=== PATIENT | male | born 1955 | race American Indian/Alaskan Native ===

== ENCOUNTER → 2017-08-16 | Outpatient (CLI) | payer MEDICAID | LOC: FIMAGING 08:48 | PROVIDERS: ATTEND Physician Assistant | DX: M19.042 Primary osteoarthritis, left hand (principal); M19.041 Primary osteoarthritis, right hand; M19.032 Primary osteoarthritis, left wrist; M19.031 Primary osteoarthritis, right wrist ==

== ENCOUNTER 2018-02-03 10:11 | Emergency (ER) | payer MEDICAID ==
[2018-02-03 10:17] VITALS: BP 162/89
--- NOTE | 2018-02-03 10:31 | EDPHY ---
H & P Stated Complaint: stung by wasp on r index finger Source: Patient Exam Limitations: No limitations - Personal History Current Tetanus Diphtheria and Acellular Pertussis (TDAP): No - Medical/Surgical History Hx Asthma: No Hx Chronic Respiratory Disease: No Hx Diabetes: No Hx Cardiac Disease: No Hx Renal Disease: No Hx Cirrhosis: No Hx Alcoholism: No Hx HIV/AIDS: No Hx Splenectomy or Spleen Trauma: No Other PMH: denies - Social History Smoking Status: Never smoked Time Seen by Provider: 02/03/18 10:23 HPI/ROS: HPI: This is a 62-year-old male who presents with Chief Complaint: stung by wasp on r index finger Location: Right index finger Quality: Wasp sting Duration: Prior to arrival Signs and Symptoms: No chest pain, no shortness of breath, no difficulty swallowing, no wheezing, no rash Timing: Acute Severity: Mild Context: Patient is right-hand dominant, presents with wasp sting to right index finger prior to arrival. He denies any allergy to a wasp or bees. He is concerned as there is mild swelling to his right index finger but he denies any radiation, weakness, decreased range of motion. He reports that he wash the area and even port hydrogen peroxide on his finger. Modifying Factors: None Comment: ROS: see HPI Constitutional: No fever, no chills, no weight loss Eyes: No blurred vision Respiratory: No shortness of breath, no cough Cardiovascular: No chest pain Gastrointestinal: No nausea, no vomiting, no diarrhea Genitourinary: No dysuria Extremities: No myalgias Neurologic: No weakness, no numbness Skin: No rashes Hematologic: No bruising, no bleeding MEDICAL/SURGICAL/SOCIAL HISTORY: Medical history: Generally healthy. Does not take any regular medications. Surgical history: Denies Social history: Never smoked. Family history noncontributory. CONSTITUTIONAL: Extremely well-appearing elderly white male, awake and alert, no obvious distress HEENT: Atraumatic and normocephalic, PERRL, EOMI. Nares patent; no rhinorrhea; no nasal mucosal edema. Tympanic membranes clear. Oropharynx clear, no exudate and moist pink mucosa. Airway patent. No lymphadenopathy. No meningismus. Cardiovascular: Normal S1/S2, regular rate, regular rhythm, without murmur rub or gallop. PULMONARY/CHEST: Symmetrical and nontender. Clear to auscultation bilaterally. Good air movement. No accessory muscle usage. ABDOMEN: Soft, nondistended, nontender, no rebound, no guarding, no peritoneal signs, no masses or organomegaly. No CVAT. EXTREMITIES: 2/2 pulses, strength 5/5, right index finger shows a small pinpoint puncture wound consistent with a sting; no foreign bodies appreciated. DI P, PIP, MCP joints show good range of motion of flexion extension. no deformities, no clubbing, no cyanosis or edema. NEUROLOGICAL: no focal neuro deficits. GCS 15. SKIN: Warm and dry, no erythema. no rash. Good capillary refill. (Chloe Lange) Constitutional: Initial Vital Signs Temperature (C) 36.8 C 02/03/18 10:14 Heart Rate 83 02/03/18 10:14 Respiratory Rate 18 02/03/18 10:14 Blood Pressure 162/89 H 02/03/18 10:14 O2 Sat (%) 99 02/03/18 10:14 O2 Delivery Mode Room Air Allergies/Adverse Reactions: procaine [From Novocain] Allergy (Verified 02/03/18 10:13) Home Medications: Medication Instructions Recorded Cephalexin [Keflex (*)] 500 mg PO TID #21 cap 02/03/18 Medical Decision Making ED Course/Re-evaluation: Vital signs stable and reviewed upon arrival. Localized reaction. No signs of anaphylaxis, respiratory distress, airway compromise. Area cleaned with Betadine and normal saline and ice pack applied. Patient has politely declined any steroids or EpiPen as he is [employer] and " does not believe in any pharmaceutical medications." Area cleaned bacitracin applied as well as clean sterile dressing. Given Benadryl 50 mg. Advised supportive care. 1105: Notified by nurse that patient is adamant that he needs antibiotic to prevent cellulitis. Prescription for Keflex given. No signs of neurovascular compromise/tenting of skin/compartment syndrome/ extremities and joints examined above and below area of concern and are neurovascularly intact. This patient was seen under the supervision of my secondary supervising physician. I evaluated care for this patient independently. Discussed this patient with Dr. Newton who did not see the patient. (Chloe Lange) Portions of this note were transcribed by the medical cost consultant. I, Dr. Melani Newton, personally performed the history, physical exam, and medical decision- making; and confirmed the accuracy of the information in the transcribed note. ( Melani Newton) Differential Diagnosis: Differential diagnosis includes but is not limited to cellulitis, localized reaction, anaphylaxis. (Chloe Lange) - Data Points Medications Given: Discontinued Medications Diphenhydramine HCl (Benadryl) 50 mg PO EDNOW ONE Stop: 02/03/18 10:34 Last Admin: 02/03/18 10:55 Dose: 50 mg Departure - Departure Disposition: Home, Routine, Self-Care Clinical Impression: Wasp sting Condition: Good Instructions: Cellulitis (ED), Insect Bite or Sting (ED) Additional Instructions: Wash the site daily with mild soap and water; then pat dry. Take Tylenol 650 mg every 4 hours and/or Ibuprofen 600 mg every 8 hours with food as needed for pain. Apply ice for 30 minutes at a time; 2-3 times per day for the next 1-2 days. Take Benadryl 25-50 mg every 4-6 hours as needed for allergic reaction. Take Keflex 500 mg 3 times a day for the next 7 days. Do not skip a dose. Return to the ER immediately if you experience redness, red streaks, have fevers /chills, flu like symptoms, limited range of motion, or any other symptoms that concern you. Referrals: Kenya Gipson [Primary Care Provider] - As per Instructions Prescriptions: Cephalexin [Keflex (*)] 500 mg PO TID #21 cap
[2018-02-03] MEDS ORDERED: diphenhydrAMINE 25 MG CAP PO ONE (10:33)
[2018-02-03] MEDS ORDERED: BACITRACIN OINTMENT 1 PACKET TP ONE (11:14)
== END 2018-02-03 11:23 | disposition home or self-care (01) ==
DX: T63.461A Toxic effect of venom of wasps, accidental (unintentional), initial encounter (principal)

== ENCOUNTER → 2018-11-12 | Outpatient (CLI) | payer MEDICAID | LOC: FIMAGING 07:45 | DX: M54.42 Lumbago with sciatica, left side (principal); M43.06 Spondylolysis, lumbar region ==

== ENCOUNTER → 2018-11-19 | Outpatient (CLI) | payer MEDICAID | LOC: FIMAGING 08:08 | PROVIDERS: ATTEND Physician Assistant | DX: Z13.6 Encounter for screening for cardiovascular disorders (principal) ==